=== PATIENT | female | born 1955 | race Caucasian/White ===

== ENCOUNTER 2021-05-12 18:09 | Inpatient (IN) | payer MEDICARE, OTHER ==
[~2021-05-12] VITALS: Ht 157.5 cm; Wt 71.7 kg
[~2021-05-12 18:09] MED LIST: CEFDINIR300 MG PO; CLONAZEPAM0.5 MG PO; COMPAZINE10 MG PO; CYCLOBENZAPRINE10 MG PO; CYMBALTA 30MG C30 MG PO; CYMBALTA20 MG PO; DITROPAN5 MG PO; HYDROMORPHONE; KLONOPIN0.5 MG PO; LASIX40 MG PO; LEVAQUIN500 MG PO; MS CONTIN30 MG PO; NEURONTIN300 MG PO; NEURONTIN400 MG PO; OMEPRAZOLE40 MG PO; ONDANSETRON4 MG/2 M2 IVP; PLAQUENIL200 MG PO; PREDNISONE 20MG20 MG PO; VIBRAMYCIN100 MG PO; ZALEPLON10 MG PO; ZOFRAN4 MG PO
[2021-05-12 19:21] LABS: BILIRUBIN NEGATIVE (NEGATIVE); BLOOD 1+ Ery/uL (NEGATIVE); CLARITY HAZY (CLEAR); COLOR YELLOW (YELLOW); GLUCOSE (U) NORMAL (NORMAL); LEUKOCYTES 3+ Leu/uL (NEGATIVE); NITRITE POSITIVE (NEGATIVE); PROTEIN TRACE (LOW) mg/dL (NEGATIVE); SPECIFIC GRAVITY 1.015 (1.001-1.030)
[2021-05-12 19:28] LABS: BACTERIA 1+; SQUAMOUS EPITHELIAL CELLS RARE; URINARY WBC 20-50
[2021-05-12 20:43] LABS: BASOPHIL 2.1 % (0-2); HCT 36.5 % (37.0-47.0); HGB 11.3 g/dl (12.5-16.0); LYMPHOCYTE 23.9 % (15-48); MCH 30.6 pg (25.0-31.0); MCV 98.9 fL (78.0-100.0); MONOCYTE 12.4 % (0-12); MPV 9.6 fL (6.0-9.5); NEUTROPHIL 59.8 % (41-80); NRBC 0; PLT 192 K/uL (150-400); RBC 3.69 M/uL (4.20-5.40); RDW 20.3 % (11.5-14.0); WBC 6.3 K/uL (4.0-10.5)
[2021-05-12 21:31] LABS: CREATININE 0.95 mg/dL (0.51-0.95); POTASSIUM 4.2 mmol/L (3.5-5.1)
[2021-05-12 21:32] LABS: ALBUMIN 2.7 g/dL (3.4-5.0); BILIRUBIN - TOTAL 0.6 mg/dL (0.2-1.0); GLOBULIN (CALCULATION) 4.1 g/dL; TOTAL PROTEIN 6.8 g/dL (6.4-8.2)
[2021-05-13 00:07] LABS: CORONAVIRUS 2019 SARS-COV-2 NEGATIVE (NEGATIVE); INFLUENZA A NAA NEGATIVE (NEGATIVE)
[2021-05-13] MEDS ORDERED: MACROBID100 MG PO (00:24)
[2021-05-13] MEDS ORDERED: TOVIAZ8 MG PO (04:59)
[2021-05-13] MEDS ORDERED: PROCHLORPERAZIN10 MG PO (05:01)
[2021-05-13] MEDS ORDERED: ZOCOR20 MG PO (05:02)
[2021-05-13] MEDS ORDERED: XARELTO10 MG PO (05:02)
[2021-05-13] MEDS ORDERED: PRILOSEC20 MG PO (05:03)
[2021-05-13] MEDS ORDERED: PLAQUENIL200 MG PO (05:04)
[2021-05-13] MEDS ORDERED: RHEUMATREX2.5 MG PO (05:07)
[2021-05-13] MEDS ORDERED: PRAZOSIN HCL1 MG PO (05:10)
[2021-05-13] MEDS ORDERED: LASIX40 MG PO (05:13)
[2021-05-13] MEDS ORDERED: UROCIT-K10 MEQ PO (05:14)
[2021-05-13] MEDS ORDERED: COMPAZINE10 MG PO (05:15)
[2021-05-13] MEDS ORDERED: ZESTRIL2.5 MG PO (05:16)
[2021-05-13 06:25] LABS: BASOPHIL 2.4 % (0-2); EOSINOPHIL 1.9 % (0-7); HCT 35.5 % (37.0-47.0); HGB 11.2 g/dl (12.5-16.0); LYMPHOCYTE 7.8 % (15-48); MCH 30.9 pg (25.0-31.0); MCHC 31.5 g/dL (32.0-36.0); MCV 97.8 fL (78.0-100.0); MONOCYTE 9.3 % (0-12); MPV 9.5 fL (6.0-9.5); NRBC 0; PLT 172 K/uL (150-400); RBC 3.63 M/uL (4.20-5.40); RDW 20.1 % (11.5-14.0); WBC 6.8 K/uL (4.0-10.5)
[2021-05-13 07:23] LABS: BUN/CREAT RATIO (CALC) 12.2 RATIO; CREATININE 0.98 mg/dL (0.51-0.95); POTASSIUM 4.3 mmol/L (3.5-5.1)
--- NOTE | 2021-05-13 15:26 | NUR ---
05/13/21 Ms. Giordano lives with her son and his girlfriend. She has a motorized wc. [facility] is current and have been notified of admission. Please notify [facility] at [phone] if patient discharges over the weekend.
[2021-05-14 17:15] LABS: CREATININE 0.94 mg/dL (0.51-0.95); POTASSIUM 5.3 mmol/L (3.5-5.1)
[2021-05-14 20:18] LABS: BASOPHIL 1.8 % (0-2); EOSINOPHIL 3.5 % (0-7); HCT 34.1 % (37.0-47.0); HGB 10.5 g/dl (12.5-16.0); LYMPHOCYTE 14.5 % (15-48); MCH 30.6 pg (25.0-31.0); MCHC 30.8 g/dL (32.0-36.0); MCV 99.4 fL (78.0-100.0); MONOCYTE 1.8 % (0-12); MPV 9.6 fL (6.0-9.5); NEUTROPHIL 77.7 % (41-80); NRBC 0; PLT 182 K/uL (150-400); RBC 3.43 M/uL (4.20-5.40); RDW 20.2 % (11.5-14.0); WBC 4.6 K/uL (4.0-10.5)
[2021-05-15 08:46] LABS: BASOPHIL 1.5 % (0-2); EOSINOPHIL 8.2 % (0-7); HCT 31.8 % (37.0-47.0); HGB 9.8 g/dl (12.5-16.0); MCH 30.6 pg (25.0-31.0); MCHC 30.8 g/dL (32.0-36.0); MCV 99.4 fL (78.0-100.0); MONOCYTE 1.5 % (0-12); MPV 9.5 fL (6.0-9.5); NEUTROPHIL 75.5 % (41-80); NRBC 0; PLT 171 K/uL (150-400); RDW 19.9 % (11.5-14.0); WBC 3.9 K/uL (4.0-10.5)
[2021-05-15 08:48] LABS: LYMPHOCYTE 12.8 % (15-48)
[2021-05-15 09:08] LABS: BUN/CREAT RATIO (CALC) 17.6 RATIO; CREATININE 1.08 mg/dL (0.51-0.95); MAGNESIUM 2.1 mg/dL (1.8-2.4); POTASSIUM 3.9 mmol/L (3.5-5.1)
[2021-05-15] MEDS ORDERED: MORPHINE SULFAT15 MG PO (13:48)
--- NOTE | 2021-05-15 14:04 | NUR ---
[facility] HAS DELIVERED PORTABLE O2 TANK AND WILL DELIVER CONCENTRATOR TO THE HOME.
[2021-05-16 07:38] LABS: C-REACTIVE PROTEIN 14.2 mg/dL (<=0.90); CREATININE 1.06 mg/dL (0.51-0.95); POTASSIUM 3.8 mmol/L (3.5-5.1)
[2021-05-16] MEDS ORDERED: LEVAQUIN250 MG PO (13:48)
[2021-05-16] MEDS ORDERED: LEVAQUIN500 MG PO (13:56)
--- NOTE | 2021-05-16 14:13 | NUR ---
CALLED NEW SCRIPT FOR LEVAQUIN TO [facility] IN [place], PER PATIENT THAT IS WERE SHE GOES.
== END 2021-05-16 12:42 | disposition home health service (06) | DRG 698 ==
LOC: FER 18:09 → FMS 05-13 01:36 → FER 05-13 02:50 → FMS 05-13 17:27
PROVIDERS: Allergy & Immunology; Allergy & Immunology Allergy; Emergency Medicine; Nurse Practitioner Family; ADMIT Internal Medicine
PROC: 0T2BX0Z Change Drainage Device in Bladder, External Approach (ICD-10-PCS; principal; 2021-05-13)
DX: T83.511A Infection and inflammatory reaction due to indwelling urethral catheter, initial encounter (principal); G93.41 Metabolic encephalopathy; J96.91 Respiratory failure, unspecified with hypoxia; J84.9 Interstitial pulmonary disease, unspecified; G82.20 Paraplegia, unspecified; N39.0 Urinary tract infection, site not specified; B96.20 Unspecified Escherichia coli [E. coli] as the cause of diseases classified elsewhere; I10 Essential (primary) hypertension; M06.9 Rheumatoid arthritis, unspecified; Z90.710 Acquired absence of both cervix and uterus; Z98.890 Other specified postprocedural states; Z90.49 Acquired absence of other specified parts of digestive tract; Z88.2 Allergy status to sulfonamides; Z79.82 Long term (current) use of aspirin; Z79.899 Other long term (current) drug therapy; Z99.81 Dependence on supplemental oxygen
CPT/HCPCS: 36415; 71250; 80048; 80053; 81001; 82024; 82530; 83605; 83735; 84145; 85025; 86140; 87076; 87088; 87186; 94010; 96365; 97162; 97166; 97530-GP; 97535; J0456; J0696; J1650; J2405; J7030; J7050; Q9967; U0002